=== PATIENT | female | born 1955 | race Caucasian/White ===

== ENCOUNTER 2021-09-28 20:10 | Emergency (ER) | payer OTHER ==
[~2021-09-28] VITALS: Ht 167.6 cm; Wt 68.0 kg
[2021-09-28 20:42] VITALS: BP_SYST 145
--- NOTE | 2021-09-28 20:47 | NUR ---
Patient rolled ankle down two stairs at aprox 1830. Positive PMSC's, swelling noted to right ankle. Patient took 600mg Ibuprofen at aprox 1900.
[2021-09-28] MEDS ORDERED: IBUPROFEN 600 MG TABLET PO ONE (21:30)
[2021-09-28] MEDS ORDERED: IBUP-1969 PO (21:32)
[2021-09-28] MEDS ORDERED: METH-634 PO (21:32)
--- NOTE | 2021-09-28 22:05 | NUR ---
Patient given written and verbal discharge instructions and verbalizes understanding. ER MD discussed with patient the results and treatment provided. Patient in stable condition. ID arm band removed. IV catheter removed intact and dressing applied, no active bleeding. Rx of ROBAXIN AND IBUPROFEN given. Patient educated on pain management and to follow up with PMD. Pain Scale . Opportunity for questions provided and answered. Medication side effect fact sheet provided.
--- NOTE | 2021-09-28 22:35 | NUR ---
As per ER MD, patient sustained displaced comminute fracture ot the posterior calcaneus. Patient called at [phone], left a voice message.
== END 2021-09-28 22:10 | disposition home or self-care (01) ==
LOC: SED 20:10
DX: S92.001A Unspecified fracture of right calcaneus, initial encounter for closed fracture (principal); S93.401A Sprain of unspecified ligament of right ankle, initial encounter; M25.571 Pain in right ankle and joints of right foot; W50.1XXA Accidental kick by another person, initial encounter; Y93.89 Activity, other specified; Y92.89 Other specified places as the place of occurrence of the external cause; Y99.8 Other external cause status
CPT/HCPCS: 99284

== ENCOUNTER 2021-10-06 19:13 | Emergency (ER) | payer OTHER ==
[~2021-10-06] VITALS: Ht 167.6 cm; Wt 70.3 kg
[~2021-10-06 19:13] MED LIST: IBUP-1969 PO; METH-634 PO
[2021-10-06 19:43] VITALS: BP_SYST 140
[2021-10-06] MEDS ORDERED: TRAM50TA PO (21:38)
[2021-10-06] MEDS ORDERED: traMADol HCL HCL 50 MG TABLET (ULTRAM) PO ONE (21:45)
== END 2021-10-06 22:03 | disposition home or self-care (01) ==
LOC: SED 19:13
DX: S92.001A Unspecified fracture of right calcaneus, initial encounter for closed fracture (principal); S93.421A Sprain of deltoid ligament of right ankle, initial encounter; Z79.899 Other long term (current) drug therapy; W10.9XXA Fall (on) (from) unspecified stairs and steps, initial encounter; Y93.89 Activity, other specified; Y92.89 Other specified places as the place of occurrence of the external cause; Y99.8 Other external cause status
CPT/HCPCS: 99283